=== PATIENT | female | born 1990 | race Caucasian/White ===

== ENCOUNTER → 2018-11-13 14:47 | Outpatient (CLI) | payer SELFPAY | PROVIDERS: Visit Provider Physician Assistant | DX: R68.89 Other general symptoms and signs (principal) | CPT/HCPCS: 87400 ==

== ENCOUNTER → 2019-06-17 15:45 | Outpatient (CLI) | payer OTHER, SELFPAY ==
--- NOTE | 2019-06-17 | DI.US.S_ITS ---
PROCEDURE: US OB >= 14 WEEKS FETUS INDICATIONS: 20 WEEK ANATOMICAL SURVEY OUTSIDE/PRIOR DATING DATA: Last menstrual period (LMP): 02/01/19. LMP-based estimated date of delivery ([facility]): 11/08/19. First dating scan (date and location): 06/17/19. Estimated date of delivery ([facility]) from first dating scan: 11/03/19. TECHNIQUE: Real-time scanning was performed of the fetus, with image documentation and biometric measurements. COMPARISON: None. FINDINGS: General: A single live intrauterine gestation is present. Presentation: Breech. Placenta: Placental position is posterior, without previa. Amniotic fluid index: 16 cm, normal range is 5-24 cm. heart rate: 128 beats per minute. Maternal cervical canal: 3.2 cm long. Normal lower limit is 2.5 cm. biometrics: Biparietal diameter: 4.5 cm equals 19 weeks 5 days Head circumference: 17.1 cm equals 19 weeks 5 days Abdominal circumference: 15.5 cm equals 20 weeks 5 days Femur length: 3.3 cm equals 20 weeks 1 day Estimated gestational age from initial scan: not applicable. Composite gestational age from present scan: 20 weeks 1 day Estimated weight and percentile: 349 g, 92nd percentile Measurement variability for biometric dating: +/- 7 days from 14 weeks to 15 weeks 6 days gestation, +/- 10 days from 16 weeks to 21 weeks 6 days gestation, +/- 2 weeks from 22 weeks to 27 weeks 6 days gestation, +/- 3 weeks for 28 weeks gestation or later. weight reference: 4500 g or EFW >90/95% is considered macrosomia or large for gestational age. EFW <10% is small for gestational age. EFW 5% or less is considered intra-uterine growth restriction. Anatomic survey: Neuro: Ventricles are non-dilated at less than 10 mm. Cisterna magna is normal at 3-11 mm. Cerebellum is normal in size and morphology. Nuchal skin fold: Normal at less than 6 mm between 14-21 weeks gestational age. Face: Nose and lips, facial profile are normal. Spine: No evidence for spina bifida. Heart: 4-chambered heart is present, with normal ventricular outflow tracts. Diaphragm: Diaphragm is intact. Stomach: Left-sided stomach is present. Kidneys: No hydronephrosis. Normal is less than 5 mm in 2nd trimester, less than 7 mm in 3rd trimester. Cord: 3-vessel cord has orthotopic insertion. Bladder: Normal in size. Extremities: All 4 extremities identified. IMPRESSION: No anatomic abnormalities are identified. No significant discrepancy is found between the estimated gestational age based on these images and the estimated gestational age based upon the given date of the last menstrual period. Dictated by: Burton Chadwick M.D. on 06/18/2019 at 11:39 Approved by: Burton Chadwick M.D. on 06/18/2019 at 11:41
== END ==
PROVIDERS: Visit Provider Midwife
DX: Z34.02 Encounter for supervision of normal first pregnancy, second trimester (principal); Z3A.20 20 weeks gestation of pregnancy
CPT/HCPCS: 76811

== ENCOUNTER 2023-07-06 06:40 | Day surgery (SDC) | payer OTHER, SELFPAY ==
[2023-07-04 08:08] VITALS: BMI 26.4
[2023-07-06] VITALS (8 sets, daily range): BP systolic 97–107; BP diastolic 62–72; PULSE 74–81; RESP 12–17; TEMP 35.8–36.6; O2SAT 96–100; BMI 29.0
--- NOTE | 2023-07-06 | PATH_ITS ---
[facility] Accession Number: [id number] No. of containers..02 Tissue . 01 Material submitted: . PART A: cervix - LEEP BIOPSY PART B: endocervix - ENDOCERVICAL CURETTAGE . 01 Diagnosis: A. Uterine Cervix, LEEP Conization: High-grade squamous intraepithelial lesion (JOSE-2 to JOSE-3/moderate to severe squamous dysplasia) extending into endocervical glands. Previous biopsy changes present. Negative for glandular dysplasia and invasive carcinoma. Surgical margins: Negative for high-grade squamous intraepithelial lesion. . B. Endocervix, Curettings: Benign endocervical tissue and mucoinflammatory debris. Negative for dysplasia and malignancy. [facility] 07/12/2023 1400 Local . 01 Electronically signed: . Teressa Weston MD, Pathologist NPI- [id number] . 01 Gross description: . A. The specimen is received in formalin, labeled with the patient's name, , and LEEP biopsy, and consists of a single unoriented fragment of cervical tissue measuring 1.7 x 1.5 x 0.9 cm. The ectocervix is pink-nesbitt, smooth and unremarkable with a central slit like os measuring 0.3 cm in length. The endocervical margin is inked blue, and the remaining stromal margin is inked orange. The tissue is radially sectioned and entirely submitted in cassettes A1-A4. B. The specimen is received in formalin, labeled with the patient's name, , and endocervical curettage, and consists of multiple fragments of red-nesbitt soft tissue and mucoid material, aggregating to 2.6 x 0.9 x 0.1 cm. The tissue is filtered into a mesh bag and entirely submitted in cassette B1. ([id number]) /[facility] 07/08/2023 1812 Local . 01 Pathologist provided ICD-10: N87.1, D06.9 . 01 CPT . 254195, [id number] Specimen Comment: A courtesy copy of this report has been sent to [phone] Performed at: 01 [facility] [address] [place] [address] [address] [facility] [place], [place], [place] [id number] MD Travon Felton MD Phone: [phone]
[2023-07-06] MEDS: LACTATED RINGERS 1,000 ML 100 ML IV (07:06)
--- NOTE | 2023-07-06 07:28 | PM.PREOP ---
Pre-operative Note Interval Note History & Physical reviewed/Exam performed by Physician: Yes Changes to H&P: No
--- NOTE | 2023-07-06 07:57 | SUR.OPER ---
Lithotomy on padded OR bed, head on pillow, arms secured on padded arm boards at <90 degrees abduction. Legs secured in padded yellow fins stirrups.
--- NOTE | 2023-07-06 08:14 | PM.OP.1 ---
Operative Date/Time/Diagnoses Date of procedure: 07/06/23 Time of procedure: 08:14 Pre-op diagnosis: JOSE-III of the cervix, IUD in place Post-op diagnosis: same Procedure & Clinicians Procedure: LEEP procedure with removal IUD Same procedure as scheduled: Yes Indications: JOSE-III of the cervix by colpo directed biopsies, patient wishes IUD removed Surgeon: Kalyani Aguirre Click Yes if Unassisted: Yes Anesthesia Type: General Operative Notes Findings: Normal external genitalia, vagina, cervix. IUD strings visible and grasped removing the Mirena IUD intact. Closure Type: not applicable Specimen(s): other (LEEP cone of the cervix with ECC) Estimated Blood Loss (mL): 10 Blood products transfused: none Procedure in detail: Patient was brought to the operating room she underwent general anesthesia. She was placed in low stirrups. A coated bivalve speculum was placed into the vagina. The Mirena IUD was removed by grasping the strings. The cervix was injected with 0.5% Marcaine with epinephrine. A single-tooth tenaculum was placed on the anterior lip of the cervix. The cervix was stained with Lugol's. The loop set at 60 W of cutting was used to remove the entire squamocolumnar junction. An ECC was performed. The tissue was cauterized external to the LEEP with ball cautery to extend the treatment zone. Monsel's was placed. The patient went to recovery room in good condition. Counts of instruments and sponges were correct. The tissue was sent for pathology. Complications: none Post-operative Condition: stable Disposition: same day surgery Plan for aftercare: Treatment and follow-up based on biopsy results.
[2023-07-06] MEDS: KETOROLAC 30 MG/ML VIAL IV (08:26)
[2023-07-06] MEDS: ONDANSETRON 4 MG/2 ML INJ IV (08:26)
[2023-07-06] MEDS: OXYCODONE IR 5 MG TABLET PO (08:29)
== END 2023-07-06 09:06 | disposition home or self-care (01) ==
PROVIDERS: Specialist; Referring Provider Obstetrics & Gynecology; Visit Provider Obstetrics & Gynecology
PROC: 0UBC7ZZ Excision of Cervix, Via Natural or Artificial Opening (ICD-10-PCS; CPT 57522; principal; 2023-07-06 07:45)
PROC: (CPT 57522; 2023-07-06 07:45)
DX: D06.9 Carcinoma in situ of cervix, unspecified (principal); Z30.432 Encounter for removal of intrauterine contraceptive device
CPT/HCPCS: 57522; 58301; J1100; J1885; J2405; J2704; J3010